=== PATIENT | male | born 1985 | race Two or more races ===

== ENCOUNTER 2020-04-08 15:51 | Emergency (ER) | payer SELFPAY ==
[~2020-04-08] VITALS: Ht 167.6 cm; Wt 90.9 kg
[~2020-04-08 15:51] MED LIST: PROM25TA10 PO
[2020-04-08 16:32] VITALS: BP 149/71
--- NOTE | 2020-04-08 17:18 | RAD ---
ANKLE BILAT 3V, FOOT BILAT 3V History: Reason: fell 6 ft pain / Spl. Instructions: / History: Technique: 3 views bilateral feet and ankles. Comparison: None. Findings: Left foot and ankle: Normal alignment. No fracture. Symmetric ankle mortise. Normal alignment of the foot. No fracture. Right foot and ankle: Normal alignment of the ankle. Symmetric ankle mortise. No fracture. Normal alignment of the foot. No fracture. Rounded density adjacent to the right first distal phalanx tuft measures 2 mm. Impression: 1. No acute osseous abnormality. 2. Rounded density adjacent to the right first distal tuft, may represent dystrophic calcification or foreign body. Electronically signed by: Tom Rdz DO (04/08/2020 5:16 PM) DAVID
[2020-04-08] MEDS ORDERED: NAPR-514 PO (17:44)
--- NOTE | 2020-04-08 17:45 | PHYS DOC ---
Past Medical History Past Medical History: No Pertinent History Past Surgical History: No Surgical History Smoking Status: Never Smoker Alcohol Use: Rarely Drug Use: None General Adult EDM: Chief Complaint: FOOT INJURY PAIN HPI: HPI: Patient is a 34 year old male with a significant medical history presents to the ED today complaining of 4 out of 10 bilateral ankle and bilateral heel pain that began a few minutes ago after he fell off a 6 foot ladder. Patient denies hitting his head on the ground. Denies any back pain. Denies any loss of bowel/bladder function. States most of the pain is on the ankle and heel on weightbearing. Review of Systems: Review of Systems: Constitutional: Denies fever or chills. [] Musculoskeletal: Reports bilateral ankle and heel pain Integument: Denies rash. [] Neurologic: Denies headache, focal weakness or sensory changes. [] Psychiatric: Denies depression or anxiety. [] Heart Score: Risk Factors: Risk Factors: DM, Current or recent (<one month) smoker, HTN, HLP, family history of CAD, obesity. Risk Scores: Score 0 - 3: 2.5% MACE over next 6 weeks - Discharge Home Score 4 - 6: 20.3% MACE over next 6 weeks - Admit for Clinical Observation Score 7 - 10: 72.7% MACE over next 6 weeks - Early Invasive Strategies Allergies: Allergies: Allergies Coded Allergies Type Severity Reaction Last Updated Verified No Known Drug Allergies 02/20/16 No Physical Exam: PE: Constitutional: Well developed, well nourished, no acute distress, non-toxic appearance. [] Skin: Warm, dry, no erythema, no rash. [] Back: No tenderness, no CVA tenderness. [] Extremities: Bilateral ankles and feet with no obvious deformity. Bruising noted on the right medial ankle. Trace edema noted to the right medial ankle. Tenderness on palpation of the right medial ankle. Full range of motion to the feet, and ankles. +2 bilateral pedal pulses. Cap refill less than 2 seconds bilateral toes Neurologic: Alert and oriented X 3, normal motor function, normal sensory function, no focal deficits noted. [] Psychologic: Affect normal, judgement normal, mood normal. [] Current Patient Data: Vital Signs: Vital Signs Date Time Temp Pulse Resp B/P (MAP) Pulse Ox O2 Delivery O2 Flow Rate FiO2 04/08/20 16:32 97.8 85 20 149/71 (97) 95 Room Air 97.8 EKG: EKG: [] Radiology/Procedures: Radiology/Procedures: []PROCEDURE: ANKLE BILAT 3V ANKLE BILAT 3V, FOOT BILAT 3V History: Reason: fell 6 ft pain / Spl. Instructions: / History: Technique: 3 views bilateral feet and ankles. Comparison: None. Findings: Left foot and ankle: Normal alignment. No fracture. Symmetric ankle mortise. Normal alignment of the foot. No fracture. Right foot and ankle: Normal alignment of the ankle. Symmetric ankle mortise. No fracture. Normal alignment of the foot. No fracture. Rounded density adjacent to the right first distal phalanx tuft measures 2 mm. Impression: 1. No acute osseous abnormality. 2. Rounded density adjacent to the right first distal tuft, may represent dystrophic calcification or foreign body. Electronically signed by: Tom Lopes DO (04/08/2020 5:16 PM) [facility] DICTATED and SIGNED BY: TOM LOPES DO DATE: 04/08/201715 Course & Med Decision Making: Course & Med Decision Making Pertinent Labs and Imaging studies reviewed. (See chart for details) This is a 34-year-old male patient presented to the ED today with bilateral a nkle plantar heel pain after falling off a 6 foot ladder today. Bilateral feet and ankle x-rays are negative for any acute findings. Patient was noted for rounded density adjacent to the right first distal tuft, may represent dystrophic calcification or foreign body. No foreign object was noted to bilateral feet and toes. Discharged home. Follow-up with orthopedic doctor in 1 to 2 weeks Amadeo Disclaimer: Amadeo Disclaimer: This electronic medical record was generated, in whole or in part, using a voice recognition dictation system. Departure Departure Impression: Primary Impression: Acute bilateral ankle pain Additional Impression: Bilateral foot pain Disposition: 01 DC HOME SELF CARE/HOMELESS Condition: STABLE Referrals: NO PCP (PCP) [facility] MD follow up in one week Patient Instructions: Ankle Sprain, Foot Contusion, [id number] Additional Instructions: You were seen for bilateral ankle and feet pain. Your x-rays were negative for any acute findings. Try to ice and elevate the extremities. Follow-up with your doctor in 1 to 2 weeks Scripts Naproxen (NAPROXEN) 500 Mg Tablet 1 TAB PO BID for pain, #20 TAB 0 Refills Prov: GRACIELA HAHN APRN 04/08/20 GRACIELA HAHN APRN Apr 08, 2020 17:45
== END 2020-04-08 18:43 | disposition home or self-care (01) ==
LOC: ER 15:51
DX: M25.571 Pain in right ankle and joints of right foot (principal); M25.572 Pain in left ankle and joints of left foot; M79.671 Pain in right foot; M79.672 Pain in left foot; R60.0 Localized edema
CPT/HCPCS: 73610; 73630; 99284